=== PATIENT | female | born 1955 | race Caucasian/White ===

== ENCOUNTER 2019-11-29 17:58 | Emergency (ER) | payer OTHER ==
[~2019-11-29] VITALS: Ht 167.6 cm; Wt 59.9 kg
--- NOTE | 2019-11-29 18:11 | NUR ---
PATIENT ARRIVED AT UNIT, BIB RA C/O SOB/WHEEZING WITH NO RELIEF FROM HHN ALBUTEROL GIVEN IN FIELD. A/O X 4. CONNECTED TO MONITOR. RT AT BEDSIDE.
[2019-11-29] MEDS ORDERED: IPRATROPIUM NEB FS 0.5 MG/2.5 ML AMPUL.NEB ONE (18:19)
[2019-11-29] MEDS ORDERED: ALBUTEROL FS 2.5 MG/3 ML VIAL.NEB ONE (18:19)
[2019-11-29] MEDS: IPRATROPIUM NEB FS 0.5 MG/2.5 ML AMPUL.NEB NEB ONE (18:19)
[2019-11-29] MEDS: ALBUTEROL FS 2.5 MG/3 ML VIAL.NEB NEB ONE (18:19)
[2019-11-29] MEDS ORDERED: methylPREDNISolone SOD SUCC 125 MG/2ML VIAL ONE (18:21)
--- NOTE | 2019-11-29 18:31 | NUR ---
IV LINE ESTABISHED
[2019-11-29] MEDS: methylPREDNISolone SOD SUCC 125 MG/2ML VIAL IV ONE (18:33)
--- NOTE | 2019-11-29 18:37 | NUR ---
WATCH CRYSTAL EDGE GRINDER AT BEDSIDE
--- NOTE | 2019-11-29 19:01 | NUR ---
PATIENT RESTING ON BED. NO ACUTE DISTRESS. NO CHANGES IN LOC NOTED. WILL CONTINUE TO MONITOR ACCORDINGLY
[2019-11-29 19:15] LABS: BASOPHILS % (AUTO) 0.5 % (0.0-2.0); HEMATOCRIT 35 % (33-45); HEMOGLOBIN 11.4 g/dL (11.5-14.8); LYMPHOCYTES # (AUTO) 1.1 /CMM (0.8-4.8); LYMPHOCYTES % (AUTO) 12.5 % (20.0-44.0); MEAN CORPUSCULAR HGB CONC 33 g/dl (31.0-36.0); MEAN CORPUSCULAR VOLUME 83 fL (82-100); MONOCYTES # (AUTO) 0.9 /CMM (0.1-1.30); NEUTROPHILS # (AUTO) 6.5 /CMM (1.8-8.9); PLATELET COUNT (AUTO) 473 /CMM (150-450); RED BLOOD CELL COUNT(AUTO) 4.23 MIL/uL (4.0-5.2); WHITE BLOOD COUNT (AUTO) 9.1 K/uL (4.3-11.0)
--- NOTE | 2019-11-29 19:23 | NUR ---
REPORT GIVEN TO VIRY OSBORNE FOR CHANTAL
[2019-11-29 19:43] LABS: CREATININE 0.9 mg/dL (0.6-1.3); POTASSIUM 3.6 mmol/L (3.5-5.1)
[2019-11-29 19:50] LABS: ALBUMIN 3.7 g/dL (3.4-5.0); BILIRUBIN,DIRECT 0.1 mg/dL (0.0-0.2); BILIRUBIN,TOTAL 0.4 mg/dL (0.2-1.0); TOTAL PROTEIN, SERUM 7.2 g/dL (6.4-8.2)
--- NOTE | 2019-11-29 19:53 | NUR ---
IV removed. Catheter intact and site benign. Pressure and 4x4 applied to site. No bleeding noted.
--- NOTE | 2019-11-29 20:08 | NUR ---
Patient discharged to home in stable condition. Written and verbal after care instructions given. Patient verbalizes understanding of instruction.
[2019-11-29 20:09] VITALS: BP 129/77
== END 2019-11-29 20:09 | disposition home or self-care (01) ==
LOC: ER 18:00
DX: J45.909 Unspecified asthma, uncomplicated (principal); I10 Essential (primary) hypertension; F41.9 Anxiety disorder, unspecified; Z88.0 Allergy status to penicillin; Z60.2 Problems related to living alone
CPT/HCPCS: 36415; 71045; 80048; 80076; 85025; 93005; 94640; 96374; 99285; J2930

== ENCOUNTER 2020-01-01 18:08 | Inpatient (IN) | payer OTHER, MEDICAID ==
[~2020-01-01] VITALS: Ht 149.9 cm; Wt 65.8 kg
--- NOTE | 2020-01-01 18:19 | NUR ---
MOLLY BUTLER 99 from home "Black stools/uncooperative/agitated", TO ER BED 8, HOOKED TO MONITOR, CHANGED TO HOSP GOWN, WARM BLANKET PROVIDED, PATIENT AOx4, PALE IN APPEARANCE. PATIENT REFUSES BLOOD TRANSFUSION D/T HER SHINTO ANGLICAN. AWAITING MD BECK.
--- NOTE | 2020-01-01 18:33 | NUR ---
DR SERRA AT BEDSIDE
[2020-01-01 18:48] LABS: BASOPHILS # (AUTO) 0.1 /CMM (0.0-0.2); BASOPHILS % (AUTO) 0.5 % (0.0-2.0); EOSINOPHILS % (AUTO) 0.3 % (0.0-6.0); HEMATOCRIT 23 % (33-45); HEMOGLOBIN 7.6 g/dL (11.5-14.8); LYMPHOCYTES # (AUTO) 3.8 /CMM (0.8-4.8); LYMPHOCYTES % (AUTO) 25.3 % (20.0-44.0); MEAN CORPUSCULAR HGB CONC 33 g/dl (31.0-36.0); MEAN CORPUSCULAR VOLUME 82 fL (82-100); MONOCYTES # (AUTO) 1.5 /CMM (0.1-1.30); NEUTROPHILS # (AUTO) 9.7 /CMM (1.8-8.9); NEUTROPHILS % (AUTO) 63.9 % (43.0-81.0); PLATELET COUNT (AUTO) 483 /CMM (150-450); RED BLOOD CELL COUNT(AUTO) 2.82 MIL/uL (4.0-5.2); WHITE BLOOD COUNT (AUTO) 15.2 K/uL (4.3-11.0)
[2020-01-01 18:56] LABS: CALCIUM, SERUM 8.5 mg/dL (8.5-10.1); CARBON DIOXIDE 23 mmol/L (21-32); CHLORIDE 106 mmol/L (98-107); CREATININE 1.4 mg/dL (0.6-1.3); GLUCOSE 87 mg/dL (74-106); POTASSIUM 4.2 mmol/L (3.5-5.1); SODIUM SERUM 141 mmol/L (136-145); UREA NITROGEN, BLOOD 63 mg/dL (7-18)
[2020-01-01] MEDS ORDERED: ONDANSETRON HCL/PF 4 MG/2 ML VIAL ONE (18:56)
[2020-01-01] MEDS ORDERED: PANTOPRAZOLE 40 MG VIAL ONE (18:56)
[2020-01-01] MEDS ORDERED: FAMOTIDINE/PF INJ 20 MG/2 ML VIAL IV ONE ×2 (18:57→19:00)
[2020-01-01] MEDS ORDERED: IV NS 0.9% 500 ML BAG IV ONE (19:00)
[2020-01-01] MEDS ORDERED: PANTOPRAZOLE 40 MG VIAL IV ONE (19:00)
[2020-01-01] MEDS ORDERED: ONDANSETRON HCL/PF 4 MG/2 ML VIAL IV ONE (19:00)
[2020-01-01] MEDS ORDERED: OCTREOTIDE 50 MCG in IV NS 0.9% 50 ML IV ONE (19:00)
[2020-01-01 19:02] LABS: ALANINE AMINOTRANSFERASE 22 U/L (12-78); ALBUMIN 3.2 g/dL (3.4-5.0); ALKALINE PHOSPHATASE 102 U/L (46-116); ASPARTATE AMINOTRANSFERASE 24 U/L (15-37); BILIRUBIN,TOTAL 0.4 mg/dL (0.2-1.0); LIPASE 94 U/L (73-393); TOTAL PROTEIN, SERUM 6.4 g/dL (6.4-8.2)
--- NOTE | 2020-01-01 19:13 | NUR ---
REPORT RECEIVED FROM INDIA TRAN FOR CHANTAL
--- NOTE | 2020-01-01 19:14 | NUR ---
REPORT GIVEN TO JERRICA OSBRONE FOR CHANTAL
--- NOTE | 2020-01-01 19:44 | NUR ---
DR. SQUIRES ON THE PHONE WITH DR. JOE
--- NOTE | 2020-01-01 20:04 | NUR ---
BED ASSIGNMENT 324-2
--- NOTE | 2020-01-01 20:35 | NUR ---
REPORT GIVEN TO INDIA BERMAN FOR CHANTAL, WITH ONGOING IV MEDS.
[2020-01-01 20:45] VITALS: BP 135/74
--- NOTE | 2020-01-01 20:46 | NUR ---
PT TRANSFERED PER ACLS PROTOCOL.
[2020-01-01 21:00] VITALS: BP 135/74
[2020-01-01] MEDS ORDERED: LORA-259 PO (22:11)
[2020-01-01] MEDS ORDERED: ESCI20TA PO (22:11)
[2020-01-01] MEDS ORDERED: ZOLP12.52 PO (22:11)
[2020-01-01] MEDS ORDERED: DIPH-530 PO (22:11)
--- NOTE | 2020-01-01 22:13 | NUR ---
MS PODIATRIST ASSISTANT NOTES RECEIVED FROM ER VIA PETER THIS 64 YO FEMALE,ALERT,ORIENTED X3,WITH CHIEF COMPLAINTS OF BLACK STOOL WITH NAUSEA AND VOMITING.CLAIMED MILD ABDOMINAL PAIN AND TOLERABLE.SALINE LOCK RIGHT AC INTACT AND PATENT,IVF INFUSING AT 75ML/HR RATE.NOTED BRUISING ON BOTH UPPER ARM.WITH KNOWN HISTORY OF GI BLEED,BUT REFUSED BLOOD TRANSFUSION,DUE TO [facility].WITH KNOWN HX OF FRACTURE LEFT WRIST DUE TO FALL,WITH PLATING INSIDE.APPEARS WEAK,AMBULATE WITH ASSIST TO THE BATHROOM.REFUSED BEDSIDE COMMODE.FALL PRECAUTION OBSERVED,BED ALARM TRIGGERED.SEIZURE PRECAUTION OBSERVED.WILL CONTINUE TO MONITOR STATUS.
[2020-01-01] MEDS ORDERED: ONDANSETRON HCL/PF 4 MG/2 ML VIAL IVP PRN (22:30)
--- NOTE | 2020-01-02 01:00 | NUR ---
MS RN NOTES PER PHARMACY TO VERIFY WITH MD LORAZEPAM 2MG PO DUPLICATE WITH AMBIEN 10MG AT HS,AND FOR WOMEN,AMBIEN 5MG ONLY FOR WOMEN TO START WITH.DR GALLARDO MADE AWARE AND SAID EITHER ONE OF THEM TO BE GIVEN.CHARGE NURSE MADE AWARE WELL.
--- NOTE | 2020-01-02 02:10 | NUR ---
MS RN NOTES C/O INSOMNIA,AMBIEN 10MG PO GIVEN ONE TIME DOSE.
[2020-01-02] MEDS: ACETAMINOPHEN 325 MG TABLET PO PRN (02:20)
--- NOTE | 2020-01-02 02:20 | NUR ---
MS RN NOTES C/O HEADACHE,TYLENOL 650MGPO GIVEN
[2020-01-02] MEDS ORDERED: ZOLPIDEM TARTRATE 10 MG TABLET PO ONE (02:30)
[2020-01-02] MEDS: IV NS 0.9% 1,000 ML IV PRN (05:14)
--- NOTE | 2020-01-02 06:38 | NUR ---
MS RN NOTES SLEPT WITH INTERVALS,LESS ANXIOUS WITH ATIVAN.IV ACCESS ON RIGHT AC,FLUSHABLE BUT IV PUMP KEEPS ON MAKING NOISE,PATIENT KEEPS ON BENDING HER ELBOW,HARD STICK,NEEDS NEW IV ACCESS,PATIENT PREFERS MIDLINE.WILL ENDORSE TO DAY NURSE FOR CHANTAL.
[2020-01-02 06:44] LABS: BASOPHILS # (AUTO) 0.1 /CMM (0.0-0.2); BASOPHILS % (AUTO) 0.7 % (0.0-2.0); EOSINOPHILS % (AUTO) 0.3 % (0.0-6.0); HEMATOCRIT 23 % (33-45); HEMOGLOBIN 7.4 g/dL (11.5-14.8); LYMPHOCYTES # (AUTO) 3.8 /CMM (0.8-4.8); LYMPHOCYTES % (AUTO) 23.8 % (20.0-44.0); MEAN CORPUSCULAR HGB CONC 32 g/dl (31.0-36.0); MEAN CORPUSCULAR VOLUME 82 fL (82-100); MONOCYTES # (AUTO) 1.7 /CMM (0.1-1.30); MONOCYTES % (AUTO) 10.5 % (2.0-12.0); NEUTROPHILS # (AUTO) 10.3 /CMM (1.8-8.9); NEUTROPHILS % (AUTO) 64.7 % (43.0-81.0); PLATELET COUNT (AUTO) 474 /CMM (150-450); RED BLOOD CELL COUNT(AUTO) 2.78 MIL/uL (4.0-5.2); WHITE BLOOD COUNT (AUTO) 15.9 K/uL (4.3-11.0)
[2020-01-02 07:15] LABS: CALCIUM, SERUM 8.5 mg/dL (8.5-10.1); CREATININE 1.1 mg/dL (0.6-1.3); MAGNESIUM 2.1 mg/dL (1.8-2.4); PHOSPHORUS 3.6 mg/dL (2.5-4.9); POTASSIUM 3.7 mmol/L (3.5-5.1)
[2020-01-02 07:16] LABS: THYROID STIMULATING HORMONE 0.984 uIU/mL (0.358-3.74)
--- NOTE | 2020-01-02 07:39 | NUR ---
rn opening notes patient received on 4L nasal cannula, no sob noted, a/o x3. NS @ 75 ml per hour R ac 22. Med Recon Nurse with patient at this time. Bed at the lowest setting, call light within reach, side rails up x2.
[2020-01-02 08:00] VITALS: BP 145/76
[2020-01-02] MEDS ORDERED: ALBU8.5H8 IH (08:19)
[2020-01-02] MEDS ORDERED: CYCL5TAB PO (08:19)
[2020-01-02] MEDS ORDERED: QUET25TA PO (08:19)
[2020-01-02] MEDS ORDERED: FLUT16SP (08:19)
[2020-01-02] MEDS ORDERED: NAPR-1009 PO (08:19)
[2020-01-02] MEDS ORDERED: BACL20TA PO (08:19)
[2020-01-02] MEDS ORDERED: METO25TA20 PO (08:19)
[2020-01-02] MEDS ORDERED: CLON0.1T PO (08:19)
[2020-01-02] MEDS ORDERED: ACET1TAB23 PO (08:19)
[2020-01-02] MEDS ORDERED: MOME17SP10 (08:19)
[2020-01-02] MEDS: PANTOPRAZOLE 40 MG VIAL IV SCH (08:38)
--- NOTE | 2020-01-02 08:43 | NUR ---
PARTICLEBOARD FACTORY WORKER/MED RECON MED RECON UPDATED. INFO OBTAINED FROM PATIENT PHARMACY OF CHOICE ( PER PATIENT REQUEST). PCP OFFICE IS CLOSED ON . INFORMATION OBTAINED FROM [facility] VERIFIED WITH THE PATIENT. PRIMARY RN AWARE.
[2020-01-02] MEDS ORDERED: BACITRACIN ZINC OINT PACKET 1 EA PACKET TP SCH (13:00)
[2020-01-02] MEDS: BACITRACIN ZINC OINT (15 GM) 15 GM TUBE TP SCH (15:17)
--- NOTE | 2020-01-02 15:56 | NUR ---
rn notes Medication recon awaiting to be approved by hospitalist. Chandrakant Conrad NP made aware.
[2020-01-02 16:00] VITALS: BP 138/84
[2020-01-02] MEDS ORDERED: CYCLOBENZAPRINE 10 MG TABLET PO PRN (16:00)
[2020-01-02] MEDS ORDERED: ALBUTEROL FS 2.5 MG/3 ML VIAL.NEB IH PRN (16:00)
[2020-01-02] MEDS: METOPROLOL TARTRATE 25 MG TABLET PO SCH (16:42)
[2020-01-02] MEDS: CLONIDINE HCL 0.1 MG TABLET PO SCH (16:42)
[2020-01-02] MEDS: SUCRALFATE 1 G/10 ML UDC PO SCH ×2 (16:42→21:30)
[2020-01-02] MEDS: LACOSAMIDE 50 MG TABLET PO SCH (17:46)
--- NOTE | 2020-01-02 18:21 | NUR ---
rn closing notes patient remains 4l nasal cannula, no sob noted, NS @ 75 ml per hour R ac 22 present. Patient denies pain at this time. all medication given and all needs met. Chandrakant Conrad did not want a midline for the patient at this time. Bed at the lowest setting, call light within reach, side rails up x2. Will give report to NOC RN for CHANTAL bedside.
--- NOTE | 2020-01-02 19:15 | NUR ---
MS RN NOTES RECEIVED PT IN BED AWAKE AND ABLE TO MAKE NEEDS KNOWN. PT A/O X3. RESPIRATIONS EVEN AND UNLABORED WITH NO S/S OF ACUTE DISTRESS OR SOB NOTED. PT NOTED WITH RAC #22G SL. PT REFUSED IV FLUIDS AT THIS TIME. NO COMPLAINTS OF PAIN AT THIS TIME. SAFETY MEASURES IN PLACE WITH BED IN LOWEST LOCKED POSITION WITH SIDE RAILS UP X2. CALL LIGHT WITHIN REACH. WILL CONTINUE TO MONITOR.
[2020-01-02 20:10] VITALS: BP 123/57
[2020-01-02] MEDS: ESCITALOPRAM OXALATE (10 MG) 10 MG TABLET PO SCH (21:30)
[2020-01-02] MEDS: QUETIAPINE FUMARATE 25 MG TABLET PO SCH ×2 (21:30→22:12)
[2020-01-02] MEDS: LORAZEPAM 1 MG TABLET PO SCH (21:31)
[2020-01-02] MEDS ORDERED: ZOLPIDEM TARTRATE 10 MG TABLET PO PRN (22:00)
[2020-01-03 06:41] LABS: BASOPHILS # (AUTO) 0.1 /CMM (0.0-0.2); BASOPHILS % (AUTO) 0.9 % (0.0-2.0); EOSINOPHILS % (AUTO) 4.4 % (0.0-6.0); LYMPHOCYTES # (AUTO) 2.8 /CMM (0.8-4.8); MEAN CORPUSCULAR HGB CONC 33 g/dl (31.0-36.0); MEAN CORPUSCULAR VOLUME 82 fL (82-100); MONOCYTES # (AUTO) 0.8 /CMM (0.1-1.30); MONOCYTES % (AUTO) 10.3 % (2.0-12.0); NEUTROPHILS # (AUTO) 4.1 /CMM (1.8-8.9); NEUTROPHILS % (AUTO) 50.4 % (43.0-81.0); PLATELET COUNT (AUTO) 352 /CMM (150-450); RED BLOOD CELL COUNT(AUTO) 2.14 MIL/uL (4.0-5.2); WHITE BLOOD COUNT (AUTO) 8.1 K/uL (4.3-11.0)
[2020-01-03 06:44] LABS: CALCIUM, SERUM 8.1 mg/dL (8.5-10.1); CREATININE 0.7 mg/dL (0.6-1.3); MAGNESIUM 2.1 mg/dL (1.8-2.4); PHOSPHORUS 2.6 mg/dL (2.5-4.9); POTASSIUM 3.4 mmol/L (3.5-5.1)
[2020-01-03 07:07] LABS: HEMOGLOBIN 5.8 g/dL (11.5-14.8)
[2020-01-03 07:08] LABS: HEMATOCRIT 18 % (33-45)
--- NOTE | 2020-01-03 07:10 | NUR ---
MS RN NOTES RECEIVED PATIENT IN BED, ALERT AND AWAKE. HOB ELEVATED. NO SOB. ON O2 @ 4 L/MIN VIA NC BARBIE WELL. DENIES ANY C/O PAIN NOR DISCOMFORT AT THIS TIME. RIGHT AC # 22 SL INTACT. BED IN LOWEST POSITION, LOCKED. BED SIDERAILS UP X2. CALL LIGHT WITHIN REACH.
--- NOTE | 2020-01-03 07:15 | NUR ---
MS RN NOTES LAB CALLED WITH CRITICAL LAB VALUE H/H 5.4. STAT REDRAW ORDERED. ENDORSED TO ONCOMING NURSE.
--- NOTE | 2020-01-03 07:21 | NUR ---
MS RN NOTES PT IN BED AWAKE AND ABLE TO MAKE NEEDS KNOWN. PT A/O X3. RESPIRATIONS EVEN AND UNLABORED WITH NO S/S OF ACUTE DISTRESS OR SOB NOTED THROUGHOUT SHIFT. PT NOTED WITH RAC #22G SL. PT REFUSED IV FLUIDS AT THIS TIME. NO COMPLAINTS OF PAIN AT THIS TIME. SAFETY MEASURES IN PLACE WITH BED IN LOWEST LOCKED POSITION WITH SIDE RAILS UP X2. CALL LIGHT WITHIN REACH. WILL ENDORSE TO ONCOMING NURSE FOR CHANTAL.
[2020-01-03 07:51] LABS: HEMOGLOBIN 6.2 g/dL (11.5-14.8)
--- NOTE | 2020-01-03 08:10 | NUR ---
MS RN NOTES RELAYED TO DR. PRICE REPEAT LOW HGB AND HCT RESULT. PER DR. PRICE HE WILL ORDER FERLICIT AND EPOGEN TO GIVE NOW.
[2020-01-03 08:23] VITALS: BP 116/61
[2020-01-03] MEDS: SUCRALFATE 1 G/10 ML UDC PO SCH ×4 (08:46→20:22)
[2020-01-03] MEDS: LACOSAMIDE 50 MG TABLET PO SCH ×2 (08:46→17:00)
[2020-01-03] MEDS: FLUTICASONE PROPIONATE 16 GM BOTTLE NS SCH (08:47)
[2020-01-03] MEDS: CLONIDINE HCL 0.1 MG TABLET PO SCH ×2 (08:47→17:00)
[2020-01-03] MEDS: BACITRACIN ZINC OINT (15 GM) 15 GM TUBE TP SCH (08:48)
[2020-01-03] MEDS: METOPROLOL TARTRATE 25 MG TABLET PO SCH ×2 (08:48→17:00)
[2020-01-03] MEDS ORDERED: LACOSAMIDE ORAL SOLN 50 MG/5 ML UDC PO SCH (09:00)
[2020-01-03] MEDS ORDERED: MOMETASONE FUROATE NASAL SUSP 17 GM BOTTLE SCH (09:00)
[2020-01-03] MEDS: PANTOPRAZOLE 40 MG VIAL IV SCH (09:25)
[2020-01-03] MEDS: SOD FERRIC GLUC 125 MG in IV NS 0.9% 100 ML IV SCH (09:30)
[2020-01-03] MEDS: IV NS 0.9% 1,000 ML IV PRN ×2 (09:34→21:20)
[2020-01-03 09:52] LABS: EOSINOPHILS % (MANUAL) 6 % (0-4); LYMPHOCYTES % (MANUAL) 30 % (16-48); MONOCYTES % (MANUAL) 6 % (0-11.0); NEUTROPHILS % (MANUAL) 58 (42-76)
[2020-01-03] MEDS ORDERED: POLYVINYL ALCOHOL 15 ML BOTTLE EACHEYE PRN (11:00)
[2020-01-03] MEDS ORDERED: EPOETIN ALFA (40,000 UNIT) 40,000 UNIT/ML VIAL SQ ONE (11:00)
[2020-01-03] MEDS: POTASSIUM CL. PREMIX PERIPHER. 50 ML IV SCH ×2 (12:12→14:20)
[2020-01-03 15:58] VITALS: BP 121/55
[2020-01-03] MEDS ORDERED: ANESTHESIA TRAY IN PYXIS 1 EA TRAY MC ONE (16:35)
--- NOTE | 2020-01-03 17:03 | NUR ---
MS RN NOTES PATIENT OFF UNIT, WENT TO OR FOR EGD
--- NOTE | 2020-01-03 17:19 | NUR ---
MS RN NOTES EVENING MEDS HELD, PATIENT STILL OFF UNIT. IN OR FOR EGD.
--- NOTE | 2020-01-03 18:00 | NUR ---
MS RN NOTES PATIENT RETURNED AFTER EGD, ALERT AND ORIENTED X4. AMBULATORY WITH STEADY GAIT. DENIES ANY C/O PAIN NOR DISCOMFORT AT THIS TIME. V/S 128/656, R:20, T: 98.7 HR: 70; SPO2 ROOM AIR 97%. PATIENT RESTING COMFORTABLY IN BED. DENIES ANY C/O PAIN NOR DISCOMFORT AT THIS TIME. WITH ORDER FOR REGULAR DIET BY MD BUT PATIENT PREFERS TO HAVE SOFT DIET INSTEAD. MD AWARE. PATIENT ATE DINNER WITH S/S OF COMPLICATIONS AND BARBIE MEAL WELL.
--- NOTE | 2020-01-03 18:55 | NUR ---
MS RN NOTES PATIENT RESTING COMFORTABLY IN BED. HOB ELEVATED. NO S/S OF RESPIRATORY DISTRESS. ON O2 @ 2 L/MIN VIA NC BARBIE WELL. DENIES ANY C/O PAIN NOR DISCOMFORT AT THIS TIME. RIGHT WRIST # 24 SL INTACT AND PATENT INFUSING NS @ 75ML/HR BARBIE WELL. NO N/V DURING THE SHIFT. NO S/S OF BLEEDING DURING THE SHIFT. BED IN LOWEST POSITION, LOCKED. BED SIDERAILS UP X2. CALL LIGHT WITHIN REACH. IN NO APPARENT DISTRESS.
--- NOTE | 2020-01-03 19:45 | NUR ---
MS RN NOTES PATIENT RESTING IN BED. BED IS IN LOWEST LOCKED POSITION WITH SIDE RAILS UP X2. CALL LIGHT IS WITHIN REACH. ON NASAL CANULA 2L/MIN, NO SOB/ ACUTE RESPIRATORY DISTRESS NOTED. NO COMPLAINTS OF PAIN AT THIS TIME. WILL CONTINUE TO MONITOR.
[2020-01-03 20:00] VITALS: BP 113/58
[2020-01-03 20:09] VITALS: BP 113/58
[2020-01-03] MEDS: ACETAMINOPHEN W/ CODEINE#3 1 EA TABLET PO PRN (20:23)
--- NOTE | 2020-01-03 20:23 | NUR ---
MS RN NOTES ADMINISTERED TYLENOL- COD#3 TID PRN PER PATIENT'S REQUEST. PATIENT RATED PAIN A 6/10. WILL CONTINUE TO MONITOR.
[2020-01-03] MEDS: ESCITALOPRAM OXALATE (10 MG) 10 MG TABLET PO SCH (21:09)
[2020-01-03] MEDS: QUETIAPINE FUMARATE 25 MG TABLET PO SCH (21:09)
[2020-01-03] MEDS: LORAZEPAM 1 MG TABLET PO SCH (21:09)
[2020-01-03] MEDS: ZOLPIDEM TARTRATE 10 MG TABLET PO PRN (22:43)
--- NOTE | 2020-01-03 22:43 | NUR ---
MS RN NOTES ADMINISTERED AMBIEN 10MG HS PRN PER PATIENT'S REQUEST.
--- NOTE | 2020-01-04 06:22 | NUR ---
MS RN CLOSING NOTES PATIENT LAYING IN BED. IV ON RIGHT WRIST #24G IS PATENT RUNNING NS @75 MLS/HR. A/O X4. BED IS IN LOWEST LOCKED POSITION WITH SIDE RAILS UP X2, SEMI FOWLERS. CALL LIGHT IS WITHIN REACH. NO COMPLAINTS OF PAIN AT THIS TIME. ON 2L NASAL CANULA, NO SOB/ ACUTE RESPIRATORY DISTRESS NOTED. WILL ENDORSE TO AM NURSE,
[2020-01-04 06:33] LABS: BASOPHILS % (AUTO) 0.5 % (0.0-2.0); EOSINOPHILS % (AUTO) 3.2 % (0.0-6.0); LYMPHOCYTES # (AUTO) 2.6 /CMM (0.8-4.8); LYMPHOCYTES % (AUTO) 32.7 % (20.0-44.0); MEAN CORPUSCULAR HGB CONC 33 g/dl (31.0-36.0); MEAN CORPUSCULAR VOLUME 84 fL (82-100); MONOCYTES # (AUTO) 0.8 /CMM (0.1-1.30); MONOCYTES % (AUTO) 10.6 % (2.0-12.0); NEUTROPHILS # (AUTO) 4.3 /CMM (1.8-8.9); PLATELET COUNT (AUTO) 279 /CMM (150-450)
[2020-01-04 06:34] LABS: RED BLOOD CELL COUNT(AUTO) 1.72 MIL/uL (4.0-5.2)
[2020-01-04 06:36] LABS: HEMATOCRIT 14 % (33-45); HEMOGLOBIN 4.7 g/dL (11.5-14.8)
--- NOTE | 2020-01-04 06:42 | NUR ---
MS RN NOTES NOTIFIED DR. GALLARDO REGARDING PATIENT'S CRITICAL LAB VALUES: Hgb 4.7, Hct 14. HOWEVER PATIENT IS TENRIISM. WAITING FOR REPLY FROM DR. GALLARDO YESTERDAY PATIENT'S Hgb WAS 6.2 AND Hct WAS 19.
[2020-01-04 06:45] LABS: CALCIUM, SERUM 7.2 mg/dL (8.5-10.1); CREATININE 0.5 mg/dL (0.6-1.3); MAGNESIUM 1.7 mg/dL (1.8-2.4); PHOSPHORUS 2.5 mg/dL (2.5-4.9); POTASSIUM 3.1 mmol/L (3.5-5.1)
--- NOTE | 2020-01-04 07:13 | NUR ---
MS RN NOTES RECEIVED PATIENT IN BED, ASLEEP. PATIENT ON OXYGEN THERAPY AT 2 LPM VIA NASAL CANNULA. BREATHING EVENLY IN NO ACUTE DISTRESS OR SOB AT THIS TIME. NO SIGNS OF PAIN SUCH FACIAL GRIMACING, MOANING OR GUARDING. R WRIST IV ACCESS GAUGE # 24 PRESENT, INTACT AND INFUSING 75 MLS/HR. PER CABLE TESTER NURSE HER HBG LEVEL IS CRITICAL AT 4.7 BUT SHE IS JEHOVA'S WITNESS SO WILL DISCUSS THAT WITH PATIENT AND ATTENDING PHYSICIAN REGARDING HER WISHES. SAFETY PRECAUTIONS IN PLACE; BED IN LOW POSITION AND LOCKED, RAILS UP X2, CALL LIGHT WITHIN REACH. WILL CONTINUE TO MONITOR PATIENT.
[2020-01-04 08:00] VITALS: BP 101/45
[2020-01-04] MEDS: SUCRALFATE 1 G/10 ML UDC PO SCH ×4 (08:38→21:38)
[2020-01-04] MEDS: LACOSAMIDE 50 MG TABLET PO SCH ×2 (08:39→17:50)
[2020-01-04] MEDS: CLONIDINE HCL 0.1 MG TABLET PO SCH ×2 (08:39→17:51)
[2020-01-04] MEDS: PANTOPRAZOLE 40 MG VIAL IV SCH (08:39)
[2020-01-04] MEDS: BACITRACIN ZINC OINT (15 GM) 15 GM TUBE TP SCH (08:40)
[2020-01-04] MEDS: METOPROLOL TARTRATE 25 MG TABLET PO SCH ×2 (08:40→17:51)
[2020-01-04] MEDS: FLUTICASONE PROPIONATE 16 GM BOTTLE NS SCH (08:53)
[2020-01-04] MEDS: POTASSIUM CHLORIDE 20 MEQ TAB.PRT.SR PO SCH ×2 (09:59→11:09)
[2020-01-04] MEDS ORDERED: POTASSIUM CHLORIDE 20 MEQ TAB.PRT.SR PO ONE (10:00)
[2020-01-04] MEDS: LORAZEPAM 1 MG TABLET PO PRN (10:52)
[2020-01-04] MEDS: Magnesium 1GM/D5W 100ML PREMIX 100 ML IV SCH ×2 (11:09→12:33)
[2020-01-04] MEDS: SOD FERRIC GLUC 125 MG in IV NS 0.9% 100 ML IV SCH (13:16)
[2020-01-04 16:00] VITALS: BP 125/76
[2020-01-04 17:42] LABS: BASOPHILS # (AUTO) 0.1 /CMM (0.0-0.2); LYMPHOCYTES # (AUTO) 2.6 /CMM (0.8-4.8); LYMPHOCYTES % (AUTO) 22.7 % (20.0-44.0); MEAN CORPUSCULAR HGB CONC 33 g/dl (31.0-36.0); MEAN CORPUSCULAR VOLUME 84 fL (82-100); MONOCYTES # (AUTO) 1.1 /CMM (0.1-1.30); MONOCYTES % (AUTO) 9.7 % (2.0-12.0); NEUTROPHILS # (AUTO) 7.4 /CMM (1.8-8.9); NEUTROPHILS % (AUTO) 65.6 % (43.0-81.0); PLATELET COUNT (AUTO) 384 /CMM (150-450); RED BLOOD CELL COUNT(AUTO) 2.06 MIL/uL (4.0-5.2); WHITE BLOOD COUNT (AUTO) 11.2 K/uL (4.3-11.0)
[2020-01-04 17:47] LABS: HEMATOCRIT 17 % (33-45); HEMOGLOBIN 5.7 g/dL (11.5-14.8)
--- NOTE | 2020-01-04 18:51 | NUR ---
MS RN CLOSING NOTES PATIENT IN BED, AWAKE, A/O X4. PATIENT ON OXYGEN THERAPY AT 2 LPM VIA NASAL CANNULA. BREATHING EVENLY IN NO ACUTE DISTRESS OR SOB AT THIS TIME. NO PAIN REPORTED BY PATIENT. R WRIST IV ACCESS GAUGE # 24 PRESENT, INTACT AND FLUSHING WELL. FLUIDS STOPPED PER MD ORDER. HER HBG IMPROVED FROM 4.7 TO 5.7 AND HTC FROM 14 TO 17. TWO BAGS OF MG REPLACED (MG 1.7). ALL NEEDS ATTENDED TO THROUGHOUT THE DAY. SAFETY PRECAUTIONS IN PLACE; BED IN LOW POSITION AND LOCKED, RAILS UP X2, CALL LIGHT WITHIN REACH. WILL ENDORSE TO APPLICATION INTEGRATION ENGINEER NURSE.
[2020-01-04] MEDS: FOLIC ACID 1 MG TABLET PO SCH (19:03)
--- NOTE | 2020-01-04 19:34 | NUR ---
MS RN OPENING NOTES PATIENT RECEIVED RESTING IN BED A/O X 4. ON 2L OF O2 VIA NC WITH BREATHING EVEN AND UNLABORED, NO SOB NOTED. NO SIGNS OF ACUTE DISTRESS. NO COMPLAINTS OF PAIN OR DISCOMFORT AT THE MOMENT. NO SIGNS OF ACTIVE BLEEDING. IV LOCATED ON R WRIST #25. SAFETY PRECAUTIONS IN PLACE WITH BED IN LOWEST POSITION, CALL LIGHT WITHIN REACH, BED LOCKED, SIDE RAILS UP. WILL CONTINUE TO MONITOR THROUGHOUT THE NIGHT.
[2020-01-04 19:48] VITALS: BP 129/68
[2020-01-04] MEDS: QUETIAPINE FUMARATE 25 MG TABLET PO SCH (21:38)
[2020-01-04] MEDS: LORAZEPAM 1 MG TABLET PO SCH (21:38)
[2020-01-04] MEDS: ESCITALOPRAM OXALATE (10 MG) 10 MG TABLET PO SCH (21:38)
[2020-01-04] MEDS: ZOLPIDEM TARTRATE 10 MG TABLET PO PRN (23:22)
[2020-01-05 06:34] LABS: BASOPHILS # (AUTO) 0.1 /CMM (0.0-0.2); BASOPHILS % (AUTO) 0.7 % (0.0-2.0); EOSINOPHILS % (AUTO) 2.7 % (0.0-6.0); LYMPHOCYTES # (AUTO) 3.1 /CMM (0.8-4.8); LYMPHOCYTES % (AUTO) 25.1 % (20.0-44.0); MEAN CORPUSCULAR HGB CONC 32 g/dl (31.0-36.0); MEAN CORPUSCULAR VOLUME 85 fL (82-100); MONOCYTES % (AUTO) 8.1 % (2.0-12.0); NEUTROPHILS # (AUTO) 7.8 /CMM (1.8-8.9); NEUTROPHILS % (AUTO) 63.4 % (43.0-81.0); PLATELET COUNT (AUTO) 391 /CMM (150-450); RED BLOOD CELL COUNT(AUTO) 2.17 MIL/uL (4.0-5.2); WHITE BLOOD COUNT (AUTO) 12.3 K/uL (4.3-11.0)
[2020-01-05 06:38] LABS: CALCIUM, SERUM 8.7 mg/dL (8.5-10.1); CREATININE 0.7 mg/dL (0.6-1.3); PHOSPHORUS 2.8 mg/dL (2.5-4.9); POTASSIUM 3.9 mmol/L (3.5-5.1)
--- NOTE | 2020-01-05 06:57 | NUR ---
MS RN CLOSING NOTES PATIENT RESTING IN BED A/O X 4. ON 2L OF O2 VIA NC WITH BREATHING EVEN AND UNLABORED, NO SOB NOTED. NO SIGNS OF ACUTE DISTRESS. NO COMPLAINTS OF PAIN OR DISCOMFORT AT THE MOMENT. NO SIGNS OF ACTIVE BLEEDING. IV LOCATED ON R WRIST #25, NOT RUNNING AVF PER PAAATIENT REQUEST . SAFETY PRECAUTIONS IN PLACE WITH BED IN LOWEST POSITION, CALL LIGHT WITHIN REACH, BED LOCKED, SIDE RAILS UP. ALL NEEDS ATTENDED TO. PATIENT WAS KEPT CLEAN AND DRY THROUGHOUT. ALL NEEDS ATTENDED TO. WILL ENDORSE TO ONCOMING SHIFT ABOUT CHANTAL.
[2020-01-05 07:28] LABS: HEMATOCRIT 18 % (33-45); HEMOGLOBIN 5.9 g/dL (11.5-14.8)
[2020-01-05 08:00] VITALS: BP 102/59
--- NOTE | 2020-01-05 08:00 | NUR ---
MS RN AM NOTES PATIENT RESTING IN BED A/O X 4. ON 2L OF O2 VIA NC WITH BREATHING EVEN AND UNLABORED, NO SOB NOTED. NO SIGNS OF ACUTE DISTRESS. NO COMPLAINTS OF PAIN OR DISCOMFORT AT THE MOMENT. NO SIGNS OF ACTIVE BLEEDING. IV LOCATED ON R WRIST #25 INFUSING WELL. SAFETY PRECAUTIONS IN PLACE WITH BED IN LOWEST POSITION, CALL LIGHT WITHIN REACH, BED LOCKED, SIDE RAILS UP. PATIENT WAS KEPT CLEAN AND DRY.
[2020-01-05 08:15] LABS: BAND % (MANUAL) 1 % (0.0-5.0); EOSINOPHILS % (MANUAL) 1 % (0-4); LYMPHOCYTES % (MANUAL) 34 % (16-48); MONOCYTES % (MANUAL) 7 % (0-11.0); NEUTROPHILS % (MANUAL) 57 (42-76)
[2020-01-05] MEDS: PANTOPRAZOLE 40 MG VIAL IV SCH (08:51)
[2020-01-05] MEDS: FOLIC ACID 1 MG TABLET PO SCH (08:51)
[2020-01-05] MEDS: SUCRALFATE 1 G/10 ML UDC PO SCH ×4 (08:51→21:03)
[2020-01-05] MEDS: CLONIDINE HCL 0.1 MG TABLET PO SCH ×2 (08:52→17:47)
[2020-01-05] MEDS: LACOSAMIDE 50 MG TABLET PO SCH ×2 (08:52→17:25)
[2020-01-05] MEDS: METOPROLOL TARTRATE 25 MG TABLET PO SCH ×2 (08:52→17:47)
[2020-01-05] MEDS: FLUTICASONE PROPIONATE 16 GM BOTTLE NS SCH (08:56)
[2020-01-05] MEDS: BACITRACIN ZINC OINT (15 GM) 15 GM TUBE TP SCH (08:57)
[2020-01-05] MEDS: SERTRALINE HCL 25 MG TABLET PO SCH (11:11)
[2020-01-05] MEDS: SOD FERRIC GLUC 125 MG in IV NS 0.9% 100 ML IV SCH (12:25)
[2020-01-05] MEDS: IV NS 0.9% 1,000 ML IV PRN (12:33)
[2020-01-05 16:00] VITALS: BP 129/70
[2020-01-05] MEDS: ACETAMINOPHEN W/ CODEINE#3 1 EA TABLET PO PRN (17:25)
[2020-01-05 19:30] VITALS: BP 112/59
--- NOTE | 2020-01-05 19:30 | NUR ---
MS RN NOTES PATIENT IN BED, AWAKE, ALERT AND ORIENTED X4. PT IS JEHOVAH WITNESS AND REFUSES BLOOD TRANSFUSION. BREATHING EVEN AND UNLABORED ON 2L NC. SHOWS NO SIGNS OF ACUTE RESPIRATORY DISTRESS, NO ACUTE PAIN. IV ON TANVIR ARM 22G RUNNING NS AT 75ML/HR. SHOWS NO SIGNS OF INFILTRATION, NO REDNESS. SAFETY PRECAUTIONS IN PLACE. BED IN LOWEST POSITION, LOCKED, AND CALL LIGHT KEPT WITHIN REACH. WILL CONTINUE TO MONITOR.
[2020-01-05 20:53] VITALS: BP 112/85
[2020-01-05] MEDS: LORAZEPAM 1 MG TABLET PO SCH (21:04)
[2020-01-05] MEDS: ESCITALOPRAM OXALATE (10 MG) 10 MG TABLET PO SCH (21:04)
--- NOTE | 2020-01-05 21:34 | NUR ---
MS RN NOTES PATIENT IV CAME OUT. PT IS REFUSING ANOTHER IV. STATES HER ARM IS STILL SWOLLEN. DOES NOT WANT AN IV UNTIL THE MORNING, ONLY IF THE SWELLING GONE DOWN. WILL CONTINUE TO MONITOR.
[2020-01-05] MEDS: QUETIAPINE FUMARATE 25 MG TABLET PO SCH (21:58)
[2020-01-05] MEDS: ZOLPIDEM TARTRATE 10 MG TABLET PO PRN (23:11)
[2020-01-06 06:06] LABS: IMMUNOGLOBULIN A, SERUM 120 mg/dL (87-352); IMMUNOGLOBULIN G, SERUM 555 mg/dL (586-1602); IMMUNOGLOBULIN M, SERUM 111 mg/dL (26-217)
--- NOTE | 2020-01-06 06:31 | NUR ---
MS RN NOTES PATIENT IN BED, SLEPT THROUGHOUT NIGHT. ALERT AND ORIENTED X4. PT IS JEHOVAH WITNESS AND REFUSES BLOOD TRANSFUSION. BREATHING EVEN AND UNLABORED ON 2L NC. SHOWS NO SIGNS OF ACUTE RESPIRATORY DISTRESS, NO ACUTE PAIN. IV ON RIGHT WRIST 22G IS RUNNING NS AT 75ML/HR. ITS CLEAN, DRY AND INTACT. SHOWS NO SIGNS OF INFILTRATION NO REDNESS. ALL DUE MEDICATIONS GIVEN. SAFETY PRECAUTIONS IN PLACE. BED IN LOWEST POSITION, LOCKED, AND CALL LIGHT KEPT WITHIN REACH. WILL ENDORSE TO ONCOMING NURSE.
--- NOTE | 2020-01-06 07:30 | NUR ---
MS/RN Opening Note Patient received AO x 4, able to response all stimuli, denies pain or any discomfort. Skin is warm to touch clean/dry, intact IV site. Respiratory even and unlabored with oxygen at 2LPM. NO s/s of blooding observed. Kept lower position of the bed with locked wheel for safety. Will continue to monitor.
[2020-01-06 08:00] VITALS: BP 98/59
[2020-01-06] MEDS: FOLIC ACID 1 MG TABLET PO SCH (08:27)
[2020-01-06] MEDS: SERTRALINE HCL 25 MG TABLET PO SCH (08:27)
[2020-01-06] MEDS: PANTOPRAZOLE 40 MG VIAL IV SCH (08:27)
[2020-01-06] MEDS: LACOSAMIDE 50 MG TABLET PO SCH ×2 (08:27→16:58)
[2020-01-06] MEDS: SUCRALFATE 1 G/10 ML UDC PO SCH ×4 (08:27→21:18)
[2020-01-06] MEDS: METOPROLOL TARTRATE 25 MG TABLET PO SCH ×2 (08:29→16:58)
[2020-01-06] MEDS: FLUTICASONE PROPIONATE 16 GM BOTTLE NS SCH (08:29)
[2020-01-06] MEDS: CLONIDINE HCL 0.1 MG TABLET PO SCH ×2 (08:30→16:59)
[2020-01-06] MEDS: BACITRACIN ZINC OINT (15 GM) 15 GM TUBE TP SCH (08:40)
[2020-01-06 08:41] LABS: BASOPHILS # (AUTO) 0.1 /CMM (0.0-0.2); BASOPHILS % (AUTO) 0.5 % (0.0-2.0); EOSINOPHILS % (AUTO) 2.3 % (0.0-6.0); LYMPHOCYTES # (AUTO) 2.4 /CMM (0.8-4.8); MEAN CORPUSCULAR HGB CONC 33 g/dl (31.0-36.0); MEAN CORPUSCULAR VOLUME 86 fL (82-100); MONOCYTES # (AUTO) 0.7 /CMM (0.1-1.30); MONOCYTES % (AUTO) 6.6 % (2.0-12.0); NEUTROPHILS # (AUTO) 7.5 /CMM (1.8-8.9); NEUTROPHILS % (AUTO) 68.6 % (43.0-81.0); PLATELET COUNT (AUTO) 424 /CMM (150-450); RED BLOOD CELL COUNT(AUTO) 2.27 MIL/uL (4.0-5.2)
--- NOTE | 2020-01-06 08:45 | NUR ---
Received report from Lab. regarding Hgb level 6.4 this morning, which upward trend number.
[2020-01-06 08:48] LABS: HEMATOCRIT 20 % (33-45); HEMOGLOBIN 6.4 g/dL (11.5-14.8)
[2020-01-06 08:57] LABS: CALCIUM, SERUM 8.8 mg/dL (8.5-10.1); CREATININE 0.8 mg/dL (0.6-1.3); MAGNESIUM 1.9 mg/dL (1.8-2.4); PHOSPHORUS 3.2 mg/dL (2.5-4.9); POTASSIUM 3.7 mmol/L (3.5-5.1)
[2020-01-06 09:15] LABS: EOSINOPHILS % (MANUAL) 1 % (0-4); LYMPHOCYTES % (MANUAL) 20 % (16-48); MONOCYTES % (MANUAL) 9 % (0-11.0); NEUTROPHILS % (MANUAL) 70 (42-76)
--- NOTE | 2020-01-06 10:00 | NUR ---
Hgb level 6.[address] Welsh.
[2020-01-06 11:21] LABS: *SPE A/G RATIO 1.2 (0.7-1.7); *SPE ALBUMIN 3.1 g/dL (2.9-4.4); *SPE ALPHA-1-GLOBULIN 0.3 g/dL (0.0-0.4); *SPE ALPHA-2-GLOBULIN 0.7 g/dL (0.4-1.0); *SPE BETA GLOBULIN 0.9 g/dL (0.7-1.3); *SPE GLOBULIN, TOTAL 2.5 g/dL (2.2-3.9); *SPE M-SPIKE Not Observed g/dL (Not Observed); *SPEGAMMA GLOBULIN 0.5 g/dL (0.4-1.8)
[2020-01-06] MEDS: ACETAMINOPHEN W/ CODEINE#3 1 EA TABLET PO PRN (13:47)
[2020-01-06] MEDS: SOD FERRIC GLUC 125 MG in IV NS 0.9% 100 ML IV SCH (15:14)
[2020-01-06] MEDS: LORAZEPAM 1 MG TABLET PO PRN (15:29)
[2020-01-06 16:00] VITALS: BP 112/50
--- NOTE | 2020-01-06 18:25 | NUR ---
MS/RN Closing Note Patient in bed comfortably, watching TV. No further right wrist pain, skin is warm to touch, kept clean/dry, intact new IV site running NS at 75 ml/HR. Respiratory even and unlabored with oxygen on/off. Remain lower position of bed with locked wheel for safety. Call light within reach, all needs met. Will endorse maintenance technician 3rd shift.
--- NOTE | 2020-01-06 19:00 | NUR ---
RN MS OPENING NOTE RECEIVED PATIENT IN BED AWAKE ALERT AND ORIENTED X 4, RESPIRATIONS EVEN AND UNLABORED WITH EQUAL RISE AND FALL OF CHEST, PT USES ON AND OFF 02 AT 2L VIA NC. AT THIS TIME REMAINS FREE OF SOB, NO DISTRESS PRESENT, IV SITE TO RIGHT FA #24G INTACT AND PATENT, NO REDNESS, NO INFILTRATION , IVF RUNNING ORDERED.ORIENTED TO STAFF AND CALL LIGHT, SAFETY PRECAUTIONS RENDERED LOW BED AND LOCKED, BED ALARM IN PLACE, ALL NEEDS ATTENDED AT THIS TIME, WILL CONTINUE TO MONITOR.
[2020-01-06 20:00] VITALS: BP 102/56
[2020-01-06 20:16] VITALS: BP 102/56
[2020-01-06] MEDS: LORAZEPAM 1 MG TABLET PO SCH (21:19)
[2020-01-06] MEDS: QUETIAPINE FUMARATE 25 MG TABLET PO SCH (21:19)
[2020-01-06] MEDS: ESCITALOPRAM OXALATE (10 MG) 10 MG TABLET PO SCH (21:19)
[2020-01-06] MEDS: IV NS 0.9% 1,000 ML IV PRN (21:24)
[2020-01-06] MEDS: ZOLPIDEM TARTRATE 10 MG TABLET PO PRN (23:21)
--- NOTE | 2020-01-06 23:25 | NUR ---
RN MS NOTES PT REQUEST AMBIEN PRN STATES " I HAVE REALLY BAD INSOMNIA" PRN AMBIEN GIVEN ORDERED WILL CONTINUE TO MONITOR.
[2020-01-07 06:29] LABS: BASOPHILS # (AUTO) 0.1 /CMM (0.0-0.2); BASOPHILS % (AUTO) 0.8 % (0.0-2.0); EOSINOPHILS % (AUTO) 3.1 % (0.0-6.0); LYMPHOCYTES # (AUTO) 2.5 /CMM (0.8-4.8); LYMPHOCYTES % (AUTO) 20.3 % (20.0-44.0); MEAN CORPUSCULAR HGB CONC 32 g/dl (31.0-36.0); MEAN CORPUSCULAR VOLUME 88 fL (82-100); MONOCYTES # (AUTO) 1.2 /CMM (0.1-1.30); NEUTROPHILS # (AUTO) 8.1 /CMM (1.8-8.9); NEUTROPHILS % (AUTO) 65.8 % (43.0-81.0); PLATELET COUNT (AUTO) 394 /CMM (150-450); RED BLOOD CELL COUNT(AUTO) 2.11 MIL/uL (4.0-5.2); WHITE BLOOD COUNT (AUTO) 12.2 K/uL (4.3-11.0)
--- NOTE | 2020-01-07 06:33 | NUR ---
RN MS CLOSING NOTE PATIENT IN BED AWAKE ALERT AND ORIENTED X 4, RESPIRATIONS EVEN AND UNLABORED WITH EQUAL RISE AND FALL OF CHEST, PT USES ON AND OFF 02 AT 2L VIA NC. AT THIS TIME REMAINS FREE OF SOB, NO DISTRESS PRESENT, IV SITE TO RIGHT FA #24G INTACT AND PATENT, NO REDNESS, NO INFILTRATION , IVF RUNNING ORDERED. CALL LIGHT KEPT WITHIN REACH, SAFETY PRECAUTIONS RENDERED LOW BED AND LOCKED, BED ALARM IN PLACE, ALL NEEDS ATTENDED THROUGHOUT SHIFT, WILL CONTINUE TO MONITOR AND ENDORSE TO NEXT SHIFT.AMBIEN EFFECTIVE PATIENT SLEPT WELL.
[2020-01-07 06:59] LABS: HEMATOCRIT 19 % (33-45)
[2020-01-07 07:05] LABS: CALCIUM, SERUM 8.7 mg/dL (8.5-10.1); CREATININE 0.9 mg/dL (0.6-1.3); POTASSIUM 3.9 mmol/L (3.5-5.1)
--- NOTE | 2020-01-07 07:05 | NUR ---
rn ms notes received call from lab critical results hgb 6.0 and hct 19. paged joint terminal attack controller . unable to reach dr. hickey at this time paged for dr. blankenship to report lab values. awaiting call back patient remains comfortable no distress present, no sob present at this time. will endorse to next shift.
[2020-01-07 08:00] VITALS: BP 104/61
[2020-01-07 08:13] LABS: BAND % (MANUAL) 1 % (0.0-5.0); EOSINOPHILS % (MANUAL) 3 % (0-4); LYMPHOCYTES % (MANUAL) 22 % (16-48); MONOCYTES % (MANUAL) 9 % (0-11.0); NEUTROPHILS % (MANUAL) 65 (42-76)
--- NOTE | 2020-01-07 08:30 | NUR ---
MS/RN OPENING NOTES RECEIVED PATIENT IN BED AWAKE ALERT AND ORIENTED X 4, RESPIRATIONS EVEN AND UNLABORED WITH EQUAL RISE AND FALL OF CHEST, PT USES ON AND OFF 02 AT 2L VIA NC. AT THIS TIME REMAINS FREE OF SOB, NO DISTRESS PRESENT, IV SITE TO RIGHT FA #24G INTACT AND PATENT, NO REDNESS, NO INFILTRATION , IVF RUNNING ORDERED. CALL LIGHT KEPT WITHIN REACH, SAFETY PRECAUTIONS RENDERED LOW BED AND LOCKED, BED ALARM IN PLACE, GARAGE DOOR OPENER INSTALLER RN REPORT HGB 6.0 AND MD IS AWARE WAITING FOR ORDER. WILL CONTINUE TO MONITOR.
[2020-01-07] MEDS ORDERED: AMOXICILLIN TRIHYDRATE 250 MG CAPSULE PO SCH (09:00)
[2020-01-07] MEDS: SUCRALFATE 1 G/10 ML UDC PO SCH ×4 (09:12→21:13)
[2020-01-07] MEDS: LACOSAMIDE 50 MG TABLET PO SCH ×2 (09:12→16:48)
[2020-01-07] MEDS: SERTRALINE HCL 25 MG TABLET PO SCH (09:13)
[2020-01-07] MEDS: PANTOPRAZOLE 40 MG VIAL IV SCH (09:13)
[2020-01-07] MEDS: METOPROLOL TARTRATE 25 MG TABLET PO SCH ×2 (09:14→16:47)
[2020-01-07] MEDS: FOLIC ACID 1 MG TABLET PO SCH (09:14)
[2020-01-07] MEDS: CLONIDINE HCL 0.1 MG TABLET PO SCH ×2 (09:14→16:47)
[2020-01-07] MEDS: BACITRACIN ZINC OINT (15 GM) 15 GM TUBE TP SCH (09:36)
[2020-01-07] MEDS: FLUTICASONE PROPIONATE 16 GM BOTTLE NS SCH (09:37)
--- NOTE | 2020-01-07 09:39 | NUR ---
MS/RN NOTES AMOXICILLIN 250MG IS ON HOLD PER PHARMACY WILL VERIFY THE ORDER TO MD DUE TO PENICILLIN ALLERGY OF THE PATIENT.
[2020-01-07] MEDS ORDERED: METRONIDAZOLE 250 MG TABLET PO SCH (10:00)
[2020-01-07] MEDS: CLARITHROMYCIN 500 MG TABLET PO SCH ×2 (10:59→21:13)
[2020-01-07] MEDS: SOD FERRIC GLUC 125 MG in IV NS 0.9% 100 ML IV SCH (14:00)
[2020-01-07 16:00] VITALS: BP 114/58
[2020-01-07] MEDS: BACLOFEN (10 MG) 10 MG TABLET PO PRN (16:48)
--- NOTE | 2020-01-07 19:24 | NUR ---
MS/RN CLOSING NOTES PATIENT IS ALERT AND ORIENTED X4. PATIENT IS NO APPARENT DISTRESS NOTED. IN ROOM AIR SATURATION OF 98%. DENIES PAIN AT THIS TIME. IV LINE IN PLACED AT THE LEFT UPPER ARM #20G PATENT AND INTACT. SEEN AND EXAMINED BY MD WITH ORDER MADE AND CARRIED OUT. ALL DUE MEDS WAS GIVEN. KEPT PATIENT CLEAN AND DRY THE WHOLE TIME. SAFETY PRECAUTIONS IN PLACED. BEDSIDE IN LOWEST POSITION. SIDE RAILS UP X2. CALL LIGHT WITHIN REACH. WILL ENDORSED TO DIVERSIFIED CROPS FARMER FOR CHANTAL.
[2020-01-07 19:30] VITALS: BP 118/66
--- NOTE | 2020-01-07 19:31 | NUR ---
MS RN NOTES PATIENT IN BED, AWAKE, ALERT AND ORIENTED X 4. BREATHING EVEN AND UNLABORED ON ROOM AIR. SHOWS NO SIGNS OF ACUTE RESPIRATORY DISTRESS. NO ACUTE PAIN. IV ON L UPPER ARM 20G SALINE LOCK, ITS CLEAN DRY AND INTACT. SHOWS NO INFILTRATION NO REDNESS. SAFETY PRECAUTIONS IN PLACE. BED IN LOWEST POSITION, LOCKED, AND CALL LIGHT KEPT WITHIN REACH. WILL CONTINUE TO MONITOR.
[2020-01-07 20:00] VITALS: BP 118/66
[2020-01-07] MEDS: ESCITALOPRAM OXALATE (10 MG) 10 MG TABLET PO SCH (21:13)
[2020-01-07] MEDS: LORAZEPAM 1 MG TABLET PO SCH (21:14)
[2020-01-07] MEDS: QUETIAPINE FUMARATE 25 MG TABLET PO SCH (21:18)
[2020-01-07] MEDS: METRONIDAZOLE 500 MG TABLET PO SCH (21:18)
[2020-01-07] MEDS: ACETAMINOPHEN 325 MG TABLET PO PRN (22:46)
--- NOTE | 2020-01-08 06:33 | NUR ---
MS RN NOTES PATIENT IN BED, ASLEEP, ALERT AND ORIENTED X 4. BREATHING EVEN AND UNLABORED ON ROOM AIR. SHOWS NO SIGNS OF ACUTE RESPIRATORY DISTRESS. NO ACUTE PAIN. IV ON L UPPER ARM 20G SALINE LOCK, ITS CLEAN DRY AND INTACT. SHOWS NO INFILTRATION NO REDNESS. ALL DUE MEDICATIONS GIVEN. SAFETY PRECAUTIONS IN PLACE. BED IN LOWEST POSITION, LOCKED, AND CALL LIGHT KEPT WITHIN REACH. WILL ENDORSE TO ONCOMING NURSE.
--- NOTE | 2020-01-08 07:39 | NUR ---
MS RN OPENING NOTE PATIENT IN BED RESTING COMFORTABLY. PATIENT IN NO ACUTE DISTRESS. NO SOB NOTED. PATIENT BREATHING IS EVEN AND UNLABORED. PATIENT STATES NO PAIN AT THIS TIME. INSTRUCTED PATIENT TO USE CALL LIGHT AND ASSISTANCE WHEN USING BATHROOM. PATIENT SAFETY PRECAUTIONS IN PLACE. PATIENT BED IS LOCKED AND IN LOWEST POSITION. CALL LIGHT WITHIN REACH. WILL CONTINUE TO MONITOR.
[2020-01-08 08:00] VITALS: BP 114/52
[2020-01-08] MEDS: SUCRALFATE 1 G/10 ML UDC PO SCH ×4 (08:32→21:01)
[2020-01-08] MEDS: FLUTICASONE PROPIONATE 16 GM BOTTLE NS SCH (08:33)
[2020-01-08] MEDS: CLARITHROMYCIN 500 MG TABLET PO SCH ×2 (08:33→21:01)
[2020-01-08] MEDS: PANTOPRAZOLE 40 MG VIAL IV SCH (08:33)
[2020-01-08] MEDS: CLONIDINE HCL 0.1 MG TABLET PO SCH ×2 (08:34→16:48)
[2020-01-08] MEDS: METOPROLOL TARTRATE 25 MG TABLET PO SCH ×2 (08:34→16:48)
[2020-01-08] MEDS: FOLIC ACID 1 MG TABLET PO SCH (08:34)
[2020-01-08] MEDS: SERTRALINE HCL 25 MG TABLET PO SCH (08:35)
[2020-01-08] MEDS: METRONIDAZOLE 500 MG TABLET PO SCH ×2 (08:35→21:01)
[2020-01-08] MEDS: LACOSAMIDE 50 MG TABLET PO SCH ×2 (08:35→16:40)
[2020-01-08] MEDS: BACITRACIN ZINC OINT (15 GM) 15 GM TUBE TP SCH (08:39)
[2020-01-08] MEDS: ACETAMINOPHEN 325 MG TABLET PO PRN ×2 (08:45→22:04)
[2020-01-08 16:00] VITALS: BP 102/55
--- NOTE | 2020-01-08 18:19 | NUR ---
MS RN CLOSING NOTE PATIENT IN BED RESTING COMFORTABLY. PATIENT IN NO ACUTE DISTRESS. NO SOB NOTED. PATIENT BREATHING IS EVEN AND UNLABORED. PATIENT STATES NO PAIN AT THIS TIME. INSTRUCTED PATIENT TO USE CALL LIGHT AND ASSISTANCE WHEN USING BATHROOM. PATIENT KEPT CLEAN, DRY AND COMFORTABLE THROUGHOUT MY SHIFT. PATIENT NEEDS AND CONCERNS ADDRESSED. PATIENT SAFETY PRECAUTIONS IN PLACE. PATIENT BED IS LOCKED AND IN LOWEST POSITION. CALL LIGHT WITHIN REACH. WILL ENDORSE CARE TO PM SHIFT FOR CHANTAL.
--- NOTE | 2020-01-08 19:20 | NUR ---
MS RN NOTES RECEIVED ON BED A/O X4,BREATHING REGULAR,NOT IN ANY FORM OF DISTRESS.SALINE LOCK RIGHT AND LEFT INTACT AND PATENT.DAVID DISCOMFORTS AT THE MOMENT.CALL LIGHT IN REACH,NEEDS ANTICIPATED.
[2020-01-08 20:00] VITALS: BP 109/55
[2020-01-08] MEDS: BACLOFEN (10 MG) 10 MG TABLET PO PRN (20:27)
--- NOTE | 2020-01-08 20:27 | NUR ---
MS RN NOTES C/O MUSCLE CRAMPS,BACLOFEN 20MG PO GIVEN ORDERED PRN FOR MUSCLE CRAMPS.
[2020-01-08] MEDS: ESCITALOPRAM OXALATE (10 MG) 10 MG TABLET PO SCH (22:02)
[2020-01-08] MEDS: QUETIAPINE FUMARATE 25 MG TABLET PO SCH (22:02)
[2020-01-08] MEDS: LORAZEPAM 1 MG TABLET PO SCH (22:02)
[2020-01-09] MEDS: ZOLPIDEM TARTRATE 10 MG TABLET PO PRN (00:07)
--- NOTE | 2020-01-09 00:07 | NUR ---
MS RN NOTES C/O INSOMNIA,AMBIEN 10MG PO GIVEN ORDERED.
--- NOTE | 2020-01-09 06:33 | NUR ---
MS RN NOTES IN BED SLEEPING,AMBIEN EFFECTIVE.HEADACHE IMPROVED.LABS TODAY.NO DISTRESS.AMBULATE WITH STEADY GAIT.WILL ENDORSE TO DAY NURSE FOR CHANTAL.
[2020-01-09 07:55] VITALS: BP_SYST 114; BP_SYST 141; BP_DIAS 72
--- NOTE | 2020-01-09 08:00 | NUR ---
MS RN OPENING NOTES RECEIVED PATIENT IN BED AWAKE AT THIS TIME. AO X 4, ABLE TO VERBALIZE NEEDS RESPIRATIONS EVEN AND UNLABORED. NO SOB NOTED, NO DISTRESS PRESENT, SALINE LOCK ON RFA G#24 INTACT AND PATENT, NO REDNESS, NO INFILTRATION. BED IN LOCKED LOWEST POSITION, SIDE RAILS UP X 2, BED ALARM ON AND CALL LIGHT WITHIN REACH. WILL CONTINUE TO MONITOR.
[2020-01-09] MEDS: METRONIDAZOLE 500 MG TABLET PO SCH ×2 (08:52→20:18)
[2020-01-09] MEDS: METOPROLOL TARTRATE 25 MG TABLET PO SCH ×2 (08:53→17:04)
[2020-01-09] MEDS: CLONIDINE HCL 0.1 MG TABLET PO SCH ×2 (08:54→17:05)
[2020-01-09] MEDS: CLARITHROMYCIN 500 MG TABLET PO SCH ×2 (08:54→20:18)
[2020-01-09] MEDS: SUCRALFATE 1 G/10 ML UDC PO SCH ×4 (08:54→20:18)
[2020-01-09] MEDS: SERTRALINE HCL 25 MG TABLET PO SCH (08:54)
[2020-01-09] MEDS: FOLIC ACID 1 MG TABLET PO SCH (08:55)
[2020-01-09] MEDS: PANTOPRAZOLE 40 MG VIAL IV SCH (08:55)
[2020-01-09] MEDS: LACOSAMIDE 50 MG TABLET PO SCH ×2 (08:55→17:04)
[2020-01-09] MEDS: BACITRACIN ZINC OINT (15 GM) 15 GM TUBE TP SCH (08:57)
[2020-01-09] MEDS: LORAZEPAM 1 MG TABLET PO PRN (09:14)
[2020-01-09] MEDS: BACLOFEN (10 MG) 10 MG TABLET PO PRN ×2 (09:14→20:18)
--- NOTE | 2020-01-09 09:14 | NUR ---
RN NOTES PT C/O OF ANXIETY, ADMINISTERED ATIVAN 0.5MG PO PRN AND PT C/O OF GENERALIZED ACHING PAIN OF 7/10 PER PAIN SCALE, ADMINISTERED BACLOFEN 2TABS PO PRN, PER PT REQUEST, VITAL SIGNS TAKEN, BP 153/61 PULSE 103, CALL LIGHT WITHIN REACH, WILL CONTINUE TO MONITOR.
[2020-01-09 09:17] LABS: BASOPHILS % (AUTO) 0.6 % (0.0-2.0); EOSINOPHILS % (AUTO) 2.7 % (0.0-6.0); HEMATOCRIT 22 % (33-45); LYMPHOCYTES # (AUTO) 1.2 /CMM (0.8-4.8); MEAN CORPUSCULAR HGB CONC 32 g/dl (31.0-36.0); MEAN CORPUSCULAR VOLUME 91 fL (82-100); MONOCYTES # (AUTO) 0.8 /CMM (0.1-1.30); MONOCYTES % (AUTO) 11.1 % (2.0-12.0); NEUTROPHILS # (AUTO) 5.2 /CMM (1.8-8.9); NEUTROPHILS % (AUTO) 69.6 % (43.0-81.0); PLATELET COUNT (AUTO) 410 /CMM (150-450); RED BLOOD CELL COUNT(AUTO) 2.35 MIL/uL (4.0-5.2); WHITE BLOOD COUNT (AUTO) 7.4 K/uL (4.3-11.0)
[2020-01-09 09:51] LABS: HEMOGLOBIN 6.8 g/dL (11.5-14.8)
[2020-01-09 09:58] LABS: BAND % (MANUAL) 3 % (0.0-5.0); EOSINOPHILS % (MANUAL) 3 % (0-4); LYMPHOCYTES % (MANUAL) 15 % (16-48); MONOCYTES % (MANUAL) 9 % (0-11.0); NEUTROPHILS % (MANUAL) 70 (42-76)
[2020-01-09] MEDS: FLUTICASONE PROPIONATE 16 GM BOTTLE NS SCH (12:05)
[2020-01-09] MEDS: ACETYLCYSTEINE 20% SOLN 800 MG/4 ML VIAL PO SCH ×2 (13:30→17:05)
[2020-01-09] MEDS ORDERED: IV NS 0.9% 250 ML IV ONE (13:34)
[2020-01-09] MEDS ORDERED: IOHEXOL-300 100 ML VIAL IV ONE ×2 (13:34→14:01)
[2020-01-09] MEDS ORDERED: CT SWABBABLE VALVE TRANS SET 1 EA INFUS.SET MC ONE (13:34)
--- NOTE | 2020-01-09 13:35 | NUR ---
RN NOTES PATIENT WELDING ENGINEER FOR CT OF ABDOMEN AT THIS TIME WITH OR WITHOUT CONTRAST VIA COMBER SETTER GALAN ORDERS. PATIENT SIGN CONSENT. PER COMBER SETTER ALSO CALL GI FOR CONSULTATION POSSIBLE COLONOSCOPY.
--- NOTE | 2020-01-09 13:41 | NUR ---
RN NOTES CALLED AND LEFT MASSAGE GI MD THOMPSON FOR POSSIBLE COLONOSCOPY VIA Dr MOBLEY. WAITING FOR RESPOND.
--- NOTE | 2020-01-09 15:15 | NUR ---
RN NOTES PATIENT BACK FROM CT AT THIS TIME , WAS COMPLAINING OF PAIN IN THE ABDOMEN.
--- NOTE | 2020-01-09 15:30 | NUR ---
MS RN NOTES PT C/O OF LEFT UPPER ABD ACHING/SHARP PAIN ON A PAIN SCALE OF 8/10. ADMINISTERED MORPHINE SULFATE 2MG/ML IV PRN. WILL REASSESS AND CONTINUE TO MONITOR
[2020-01-09] MEDS: MORPHINE SULFATE INJ 2 MG/ML DISP.SYRIN IV PRN (15:37)
[2020-01-09 16:04] VITALS: BP 110/67
--- NOTE | 2020-01-09 18:38 | NUR ---
RN CLOSING NOTES PT IN BED AWAKE AT THIS TIME, HOB ELEVATED TO SEMI FOWLERS. PT APPEARS COMFORTABLE WITH NO S/S OF ANY ACUTE DISTRESS. NO SOB NOTED, RESPIRATIONS ARE EVEN AND UNLABORED. PT SATURATING WELL ON RA @ 98 %. IV SALINE LOCK ON RFA G#20, INTACT AND PATENT. ALL NEEDS AND CONCERNS CARED FOR. PT AMBULATES FOR BATHROOM PRIVILEGES WITH A STEADY GAIT. SAFETY PRECAUTIONS IN PLACE, BED IN LOCKED LOWEST POSITION, SIDE RAILS UP X 2, CALL LIGHT WITHIN REACH, WILL ENDORSE TO NIGHT NURSE FOR CHANTAL.
--- NOTE | 2020-01-09 19:20 | NUR ---
RN OPEN NOTES RECEIVED PATIENT AWAKE IN BED. A/OX4. NO SIGNS OF DISTRESS OR DISCOMFORT. BREATHING EVEN AND UNLABORED. IV ACCESS IN RFA, PATENT AND INTACT, NO SIGNS OF REDNESS OR INFILTRATION. BED IN LOW LOCKED POSITION WITH SIDE RAILS X2. CALL LIGHT WITHIN REACH. WILL CONTINUE TO MONITOR.
[2020-01-09 20:00] VITALS: BP 100/48
--- NOTE | 2020-01-09 20:18 | NUR ---
RN NOTES ADMINISTERED BACLOFEN 20MG ORDERED FOR MUSCLE SPASMS, AT PATIENT REQUEST. VSS. WILL CONTINUE TO MONITOR.
[2020-01-09] MEDS: QUETIAPINE FUMARATE 25 MG TABLET PO SCH (22:09)
[2020-01-09] MEDS: LORAZEPAM 1 MG TABLET PO SCH (22:09)
[2020-01-09] MEDS: ESCITALOPRAM OXALATE (10 MG) 10 MG TABLET PO SCH (22:09)
--- NOTE | 2020-01-10 00:05 | NUR ---
RN NOTES ADMINISTERED 10MG AMBIEN ORDERED FOR INSOMINA, AT PATIENT REQUEST. VSS. WILL CONTINUE TO MONITOR.
[2020-01-10 06:48] LABS: BASOPHILS # (AUTO) 0.1 /CMM (0.0-0.2); BASOPHILS % (AUTO) 0.8 % (0.0-2.0); HEMATOCRIT 23 % (33-45); HEMOGLOBIN 7.4 g/dL (11.5-14.8); LYMPHOCYTES # (AUTO) 1.7 /CMM (0.8-4.8); LYMPHOCYTES % (AUTO) 21.1 % (20.0-44.0); MEAN CORPUSCULAR HGB CONC 33 g/dl (31.0-36.0); MEAN CORPUSCULAR VOLUME 92 fL (82-100); MONOCYTES # (AUTO) 1.1 /CMM (0.1-1.30); MONOCYTES % (AUTO) 14.4 % (2.0-12.0); NEUTROPHILS # (AUTO) 4.8 /CMM (1.8-8.9); NEUTROPHILS % (AUTO) 60.7 % (43.0-81.0); PLATELET COUNT (AUTO) 420 /CMM (150-450); RED BLOOD CELL COUNT(AUTO) 2.48 MIL/uL (4.0-5.2); WHITE BLOOD COUNT (AUTO) 7.8 K/uL (4.3-11.0)
--- NOTE | 2020-01-10 06:59 | NUR ---
RN CLOSING NOTES PATIENT RESTING IN BED, EASILY AROUSABLE. A/OX4. NO SIGNS OF DISTRESS OR DISCOMFORT. BREATHING EVEN AND UNLABORED. IV ACCESS IN RFA, PATENT AND INTACT, NO SIGNS OF REDNESS OR INFILTRATION. ALL NEEDS MET. NO SIGNIFICANT CHANGES THROUGH THE NIGHT. BED IN LOW LOCKED POSITION WITH SIDE RAILS X2. CALL LIGHT WITHIN REACH. WILL ENDORSE TO AM SHIFT FOR CHANTAL.
--- NOTE | 2020-01-10 07:50 | NUR ---
rn opening notes Patient received on room air, no sob noted, patient shows no s/s of pain at this time. A/O x4, RFA 20. Bed at the lowest setting, call light within reach, side rails up x2.
[2020-01-10 08:00] VITALS: BP 117/57
[2020-01-10] MEDS: PANTOPRAZOLE 40 MG VIAL IV SCH (08:25)
[2020-01-10] MEDS: ACETYLCYSTEINE 20% SOLN 800 MG/4 ML VIAL PO SCH ×2 (08:25→16:54)
[2020-01-10] MEDS: SUCRALFATE 1 G/10 ML UDC PO SCH ×3 (08:25→16:54)
[2020-01-10] MEDS: CLONIDINE HCL 0.1 MG TABLET PO SCH ×2 (08:26→16:50)
[2020-01-10] MEDS: LACOSAMIDE 50 MG TABLET PO SCH ×2 (08:26→16:54)
[2020-01-10] MEDS: SERTRALINE HCL 25 MG TABLET PO SCH (08:26)
[2020-01-10] MEDS: METRONIDAZOLE 500 MG TABLET PO SCH (08:26)
[2020-01-10] MEDS: METOPROLOL TARTRATE 25 MG TABLET PO SCH ×2 (08:26→16:50)
[2020-01-10] MEDS: FOLIC ACID 1 MG TABLET PO SCH (08:26)
[2020-01-10] MEDS: CLARITHROMYCIN 500 MG TABLET PO SCH (08:26)
[2020-01-10] MEDS: BACITRACIN ZINC OINT (15 GM) 15 GM TUBE TP SCH (08:28)
[2020-01-10] MEDS: FLUTICASONE PROPIONATE 16 GM BOTTLE NS SCH (08:28)
[2020-01-10] MEDS: BACLOFEN (10 MG) 10 MG TABLET PO PRN ×2 (10:40→15:35)
[2020-01-10] MEDS ORDERED: METR500T PO (11:00)
[2020-01-10] MEDS ORDERED: CLAR-45 PO (11:00)
[2020-01-10] MEDS ORDERED: FERR325T28 PO (11:00)
[2020-01-10] MEDS ORDERED: LACO50TA2 PO (11:00)
[2020-01-10] MEDS ORDERED: PANT40TA2 PO (11:00)
[2020-01-10] MEDS: MORPHINE SULFATE INJ 2 MG/ML DISP.SYRIN IV PRN (11:45)
[2020-01-10] MEDS ORDERED: EPOETIN ALFA (40,000 UNIT) 40,000 UNIT/ML VIAL SQ SCH (15:00)
[2020-01-10 16:00] VITALS: BP 100/50
[2020-01-10 16:50] VITALS: BP 100/50
--- NOTE | 2020-01-10 16:50 | NUR ---
rn notes Patients BP 100/50 at this time, patient denies diziness or any discomfort. Will hold BP meds with patient's knowledge. Patient agreeing to the treatment plan.
[2020-01-10] MEDS ORDERED: FERROUS SULFATE (325 MG) 325 MG/TAB TABLET PO SCH (17:00)
[2020-01-10] MEDS ORDERED: METRONIDAZOLE 500 MG TABLET PO ONE (17:30)
[2020-01-10] MEDS ORDERED: CLARITHROMYCIN 500 MG TABLET PO ONE (17:30)
--- NOTE | 2020-01-10 18:48 | NUR ---
rn erma notes Patient discharged with all her belongings, refused photo. No sob noted, vital signs stable. Patient signed all paper works with no further questions. DC'd on taxi with voucher.
== END 2020-01-10 18:45 | disposition home or self-care (01) | DRG 378 ==
LOC: ER 18:08 → MED 20:16 → MEDSG2 01-05 13:48 → MED 01-07 13:00
PROVIDERS: ADMIT Nurse Practitioner Acute Care; ATTEND Student in an Organized Health Care Education/Training Program
PROC: 0DB98ZX Excision of Duodenum, Via Natural or Artificial Opening Endoscopic, Diagnostic (ICD-10-PCS; principal; 2020-01-03)
PROC: 0DB68ZX Excision of Stomach, Via Natural or Artificial Opening Endoscopic, Diagnostic (ICD-10-PCS; principal; 2020-01-03)
DX: K25.4 Chronic or unspecified gastric ulcer with hemorrhage (principal); D62 Acute posthemorrhagic anemia; F32.9 Major depressive disorder, single episode, unspecified; I10 Essential (primary) hypertension; G40.909 Epilepsy, unspecified, not intractable, without status epilepticus; J45.909 Unspecified asthma, uncomplicated; K29.70 Gastritis, unspecified, without bleeding; F41.9 Anxiety disorder, unspecified; Z88.0 Allergy status to penicillin; Z82.49 Family history of ischemic heart disease and other diseases of the circulatory system; Z87.11 Personal history of peptic ulcer disease; K26.7 Chronic duodenal ulcer without hemorrhage or perforation; H52.4 Presbyopia; E88.09 Other disorders of plasma-protein metabolism, not elsewhere classified
CPT/HCPCS: 36415; 71045-TC; 74178; 80048-TC; 80061-TC; 80076-TC; 82728-TC; 82784; 83540-TC; 83690-TC; 83735-TC; 84100-TC; 84155; 84165; 84443-TC; 84484-TC; 85025-TC; 85027-TC; 85730-TC; 86334; 87081-TC; 88305-TC; 88313-TC; 88342; 93307-TC; 97116-TC; 97530-TC; A4216; C9113; G0378; J0885; J2270; J2354; J2405; J2704; J2916; J3475; J3480; J3490; J7030; J7040; J7050; Q9967